=== PATIENT | female | born 1980 | race American Indian/Alaskan Native ===

== ENCOUNTER 2017-01-15 17:15 | Emergency (ER) | payer OTHER ==
[2017-01-15 17:28] VITALS: BP 129/79
[2017-01-15 18:14] LABS: CHLORIDE,CL 106 mmol/L (101-111); SODIUM,NA 140 mmol/L (135-145)
--- NOTE | 2017-01-15 18:15 | EDM.PDOC ---
ED HISTORY OF PRESENT ILLNESS - General Chief Complaint: Respiratory Problem Stated Complaint: COUGH Time Seen by Provider: 01/15/17 17:42 Source of Information: Reports: Patient History Limitations: Reports: No limitations - History of Present Illness INITIAL COMMENTS - FREE TEXT/NARRATIVE: This 36 yo female patient reports to the ED with increased shortness of breath over the past week. The patient reports she attempted to get into the [facility], but there were no walk-in appointments available. The patient reports she has been having troubles getting air into her lungs and feels like there is a "feather" in the back of her throat. Symptom Onset Date: 01/08/17 Timing/Duration: Reports: Constant, Getting worse Severity: moderate Location, General: Reports: chest Quality: Reports: Dull, Pressure Improves with: Reports: None Worsens with: Reports: None Context, General: Reports: Other Associated Symptoms (General): Reports: cough, shortness of breath - Related Data Allergies/ADRs: Allergies Allergy/AdvReac Type Severity Reaction Status Date / Time No Known Allergies Allergy Verified 01/15/17 18:27 Home Meds: Home Meds Atenolol 50 mg PO BID 01/01/14 [History] Losartan [Cozaar] 50 mg PO DAILY 01/01/14 [History] Past Medical History HEENT History: Reports: Impaired vision Cardiovascular History: Reports: Hypertension - Infectious Disease History Infectious Disease History: Reports: Chicken pox - Past Surgical History GI Surgical History: Reports: Appendectomy Female Surgical History: Reports: section Social & Family History - Tobacco Use Smoking Status *Q: Current Some Day Smoker Years of Tobacco use: 10 Packs/Tins Daily: 0.1 Second Hand Smoke Exposure: Yes - Caffeine Use Caffeine Use: Reports: Coffee - Alcohol Use Days Per Week of Alcohol Use: 1 Number of Drinks Per Day: 6 Total Drinks Per Week: 6 - Recreational Drug Use Recreational Drug Use: No - Living Situation & Occupation Living situation: Reports: with significant other Occupation: employed ED ROS GENERAL - Review of Systems Review Of Systems: ROS reveals no pertinent complaints other than HPI. ED EXAM, GENERAL - Physical Exam Exam: See Below Exam Limited By: No limitations General Appearance: alert, WD/WN, moderate distress, obese Eye Exam: bilateral eye: EOMI, normal inspection, PERRL Ears: normal external exam, normal canal, hearing grossly normal, normal TMs Nose: normal inspection, normal mucosa, no blood Throat/Mouth: Normal inspection, Normal lips, Normal teeth, Normal gums, Normal oropharynx, Normal voice, No airway compromise Head: atraumatic, normocephalic Neck: normal inspection, supple, non-tender, full range of motion Respiratory/Chest: no respiratory distress, chest non-tender, decreased breath sounds Cardiovascular: normal peripheral pulses, regular rate, rhythm, no edema, no gallop, no JVD, no murmur, no rub GI/Abdominal: normal bowel sounds, soft, non tender, no organomegaly, no distention, no abnormal bruit, no mass (Female) Exam: Deferred Rectal (Female) Exam: Deferred Extremities: normal inspection, normal range of motion, non-tender, normal capillary refill, no pedal edema Neurological: alert, oriented, CN II-XII intact, normal cognition, normal gait, normal reflexes, no motor/sensory deficits Psychiatric: normal affect, normal mood Skin Exam: Warm, Dry, Intact, Normal color, No rash Lymphatic: no adenopathy Course - Vital Signs Last Recorded V/S: Last Vital Signs Temp 36.6 C 01/15/17 17:27 Pulse 84 01/15/17 17:27 Resp 16 01/15/17 17:27 BP 129/79 01/15/17 17:27 Pulse Ox 100 01/15/17 17:27 - Orders/Labs/Meds Orders: Active Orders 24 hr Category Date Time Status RT Aerosol Therapy [RC] ASDIRECTED Care 01/15/17 18:31 Ordered CULTURE STREP A CONFIRMATION [] Stat Lab 01/15/17 17:46 Results STREP SCRN A RAPID W CULT CONF [] Stat Lab 01/15/17 17:46 Results Labs: Laboratory Tests 01/15/17 01/15/17 Range/Units 17:48 17:48 WBC 14.1 H (5.0-10.0) 10^3/uL RBC 4.34 (4.2-5.4) 10^6/uL Hgb 13.1 (12.0-16.0) g/dL Hct 38.7 (37.0-47.0) % MCV 89.2 (80-100) fL MCH 30.2 (27.0-34.0) pg MCHC 33.9 (33.0-35.0) g/dL Plt Count 217 (150-450) 10^3/uL Neut % (Auto) 66.0 (42.2-75.2) % Lymph % (Auto) 23.3 (20.5-50.1) % [place] % (Auto) 7.7 (2-8) % Eos % (Auto) 2.8 (1.0-3.0) % Baso % (Auto) 0.2 (0.0-1.0) % Sodium 140 (135-145) mmol/L Potassium 4.2 (3.6-5.0) mmol/L Chloride 106 (101-111) mmol/L Carbon Dioxide 26.0 (21.0-31.0) mmol/L Anion Gap 12.2 BUN 14 (7-18) mg/dL Creatinine 0.5 L (0.6-1.3) mg/dL Est Cr Clr Drug Dosing 131.74 mL/min Estimated GFR (MDRD) > 60 BUN/Creatinine Ratio 28.00 Glucose 120 H (74-105) mg/dL Calcium 8.9 (8.4-10.2) mg/dl Total Bilirubin 0.5 (0.2-1.0) mg/dL AST 45 H (10-42) IU/L ALT 56 (10-60) IU/L Alkaline Phosphatase 87 (42-121) IU/L Total Protein 7.0 (6.7-8.2) g/dl Albumin 3.7 (3.2-5.5) g/dl Globulin 3.3 Albumin/Globulin Ratio 1.12 Meds: Medications Discontinued Medications Generic Name Dose Route Start Last Admin Trade Name Jayden PRN Reason Stop Dose Admin Albuterol/Ipratropium 3 ml 01/15/17 18:31 01/15/17 18:36 Duoneb 3.0-0.5 Mg/3 Ml NEB 01/15/17 18:32 3 ml ONETIME ONE Administration Methylprednisolone Sodium Succinate 125 mg 01/15/17 18:55 01/15/17 19:01 Solu-Medrol IM 01/15/17 18:56 125 mg ONETIME ONE Administration Departure - Departure Time of Disposition: 19:02 Disposition: Home, Self-Care 01 Condition: poor Clinical Impression: Shortness of breath Instructions: Shortness of Breath, [id number] Forms: ED Department Discharge Care Plan Goals: The patient was advised of the examination, lab and x-ray results during the visit. The patient was given a dose of SoluMedrol and a Duoneb treatment. The patient was discharged with scripts for 1) Albuterol Neb Solution (2.5/3) #1 box to take 1 treatment 4 times per day as needed, 2) Albuterol MDI (90 mcg) 2 puffs every 6 hours as needed, 3) Azithromycin (250 mg) #6 to take 2 by mouth on day 1 and 1 by mouth on days 2-5, and 4) Prednisone (20 mg) #10 to take 2 by mouth daily for 5 days. The patient should follow-up with her primary care facility in the next week for continued evaluation and management. - My Orders Last 24 Hours: My Active Orders 01/15/17 17:46 CULTURE STREP A CONFIRMATION [RM] Stat STREP SCRN A RAPID W CULT CONF [RM] Stat 01/15/17 18:31 RT Aerosol Therapy [RC] ASDIRECTED - Assessment/Plan Last 24 Hours: My Active Orders 01/15/17 17:46 CULTURE STREP A CONFIRMATION [RM] Stat STREP SCRN A RAPID W CULT CONF [RM] Stat 01/15/17 18:31 RT Aerosol Therapy [RC] ASDIRECTED
[2017-01-15] MEDS ORDERED: Albuterol/Ipratropium 3.0-0.5 MG/3 ML Neb Soln NEB ONE (18:31)
[2017-01-15] MEDS ORDERED: methylPREDNISolone Sodium Succinate 125 MG/2 ML SDV IM ONE (18:55)
== END 2017-01-15 19:20 | disposition home or self-care (01) ==
LOC: DL.ED 17:15
DX: R06.02 Shortness of breath (principal); I10 Essential (primary) hypertension; Z90.49 Acquired absence of other specified parts of digestive tract
CPT/HCPCS: 36415; 71020; 80053; 85025; 87081; 87430; 87804; 94640; 96372; 99284; J2930

== ENCOUNTER 2017-01-15 21:33 | Emergency (ER) | payer OTHER ==
[2017-01-15 21:41] VITALS: BP 140/86
[2017-01-15] MEDS ORDERED: Albuterol/Ipratropium 3.0-0.5 MG/3 ML Neb Soln NEB ONE (21:49)
--- NOTE | 2017-01-15 21:54 | EDM.PDOC ---
ED HISTORY OF PRESENT ILLNESS - General Chief Complaint: Respiratory Problem Stated Complaint: CANT BREATH Time Seen by Provider: 01/15/17 21:50 Source of Information: Reports: Patient History Limitations: Reports: No limitations - History of Present Illness INITIAL COMMENTS - FREE TEXT/NARRATIVE: returns with complaint of cough, tried neb at home without relief. No c/o of dyspnea. Patient seen ealrlier for same, given albuterol solumedrol and antibiotic. - Related Data Allergies/ADRs: Allergies Allergy/AdvReac Type Severity Reaction Status Date / Time No Known Allergies Allergy Verified 01/15/17 18:27 Home Meds: Home Meds Atenolol 50 mg PO BID 01/01/14 [History] Losartan [Cozaar] 50 mg PO DAILY 01/01/14 [History] Past Medical History HEENT History: Reports: Impaired vision Cardiovascular History: Reports: Hypertension - Infectious Disease History Infectious Disease History: Reports: Chicken pox - Past Surgical History GI Surgical History: Reports: Appendectomy Female Surgical History: Reports: section Social & Family History - Tobacco Use Smoking Status *Q: Current Some Day Smoker Years of Tobacco use: 10 Packs/Tins Daily: 0.1 Second Hand Smoke Exposure: Yes - Caffeine Use Caffeine Use: Reports: Coffee - Alcohol Use Days Per Week of Alcohol Use: 1 Number of Drinks Per Day: 6 Total Drinks Per Week: 6 - Recreational Drug Use Recreational Drug Use: No - Living Situation & Occupation Living situation: Reports: with significant other Occupation: employed ED ROS GENERAL - Review of Systems Review Of Systems: See Below Constitutional: Reports: no symptoms HEENT: Reports: No symptoms Respiratory: Reports: cough Cardiovascular: Reports: No symptoms GI/Abdominal: Reports: No symptoms : Reports: no symptoms Musculoskeletal: Reports: no symptoms Skin: Reports: no symptoms Neurological: Reports: no symptoms ED EXAM, GENERAL - Physical Exam Exam: See Below Exam Limited By: No limitations General Appearance: alert, mild distress Eye Exam: bilateral eye: EOMI Ears: normal external exam, normal TMs Nose: normal inspection Throat/Mouth: Normal inspection Head: atraumatic, normocephalic Neck: normal inspection Respiratory/Chest: decreased breath sounds (slight bases), other (frequent dry forced cough). No: crackles, rales, rhonchi, wheezing Cardiovascular: normal peripheral pulses, regular rate, rhythm GI/Abdominal: normal bowel sounds Extremities: normal inspection Neurological: alert, oriented Psychiatric: normal affect Skin Exam: Warm, Dry, Intact, Normal color Course - Vital Signs Last Recorded V/S: Last Vital Signs Temp 97 F 01/15/17 21:38 Pulse 75 01/15/17 22:09 Resp 18 01/15/17 21:38 BP 140/86 01/15/17 21:38 Pulse Ox 99 01/15/17 21:38 - Orders/Labs/Meds Orders: Active Orders 24 hr Category Date Time Status RT Aerosol Therapy [RC] ASDIRECTED Care 01/15/17 21:49 Active Labs: Laboratory Tests 01/15/17 Range/Units 22:09 D-Dimer, Quantitative < 100 (0-400) ng/mL Meds: Medications Discontinued Medications Generic Name Dose Route Start Last Admin Trade Name Jayden PRN Reason Stop Dose Admin Albuterol/Ipratropium 3 ml 01/15/17 21:49 01/15/17 21:57 Duoneb 3.0-0.5 Mg/3 Ml NEB 01/15/17 21:50 3 ml ONETIME ONE Administration Guaifenesin/Codeine Phosphate Confirm 01/15/17 22:55 01/15/17 23:06 Robitussin Ac Administered 01/15/17 22:56 Not Given Dose 10 ml .ROUTE .STK-MED ONE - Re-Assessments/Exams Free Text/Narrative Re-Assessment/Exam: 01/16/17 04:09 Duo Neb with slight improvement in cough. Good air exchange, sats 99% Departure - Departure Time of Disposition: 22:46 Disposition: Home, Self-Care 01 Condition: fair Clinical Impression: Cough due to bronchospasm Instructions: Acute Bronchitis, [id number] Forms: ED Department Discharge Additional Instructions: increase fluids- warm liquids robitussin AC 5ml every 4 hours as needed for cough 10ml albuterol nebulizer every 4 hours as needed clinic follow up 2 days antibiotic and prednisone as previously ordered. Tesselon pearles 200mg one every 8 hours as needed for cough #10 - My Orders Last 24 Hours: My Active Orders 01/15/17 21:49 RT Aerosol Therapy [RC] ASDIRECTED - Assessment/Plan Last 24 Hours: My Active Orders 01/15/17 21:49 RT Aerosol Therapy [RC] ASDIRECTED
[2017-01-15] MEDS ORDERED: Codeine/guaiFENesin 100-10 MG/5 ML Syrup 5 ML Cup ONE (22:55)
[2017-01-15] MEDS ORDERED: Codeine/guaiFENesin 100-10 MG/5 ML Syrup 5 ML Cup PO ONE (22:55)
== END 2017-01-15 23:00 | disposition home or self-care (01) ==
LOC: DL.ED 21:33
DX: J98.01 Acute bronchospasm (principal); R06.02 Shortness of breath; I10 Essential (primary) hypertension; Z90.49 Acquired absence of other specified parts of digestive tract; Z79.899 Other long term (current) drug therapy
CPT/HCPCS: 36415; 71020; 80053; 85025; 85379; 87081; 87430; 87804; 94640; 96372; 99283; 99284; A9270; J2930

== ENCOUNTER 2017-01-17 18:49 | Emergency (ER) | payer OTHER ==
[2017-01-17 18:59] VITALS: BP 151/55
[2017-01-17] MEDS ORDERED: Albuterol 0.083% 2.5 MG/3 ML Neb Soln NEB ONE (19:35)
[2017-01-17] MEDS ORDERED: Lidocaine 1% 30 ML SDV ONE (19:35)
--- NOTE | 2017-01-17 20:06 | EDM.PDOC ---
ED HISTORY OF PRESENT ILLNESS - General Chief Complaint: Respiratory Problem Stated Complaint: COUGH Time Seen by Provider: 01/17/17 19:15 Source of Information: Reports: Patient History Limitations: Reports: No limitations - History of Present Illness INITIAL COMMENTS - FREE TEXT/NARRATIVE: C/O continued dry cough. No improvement since prior ER visits. Has been using nebulizer, last at 230 this afternoon, tesselon, and prednsione. Denies other symptoms. On discussion with patient, prior symptoms with Lisnopril. Sx stopped when on Cozaar. Has been on med approximately 4 years now. - Related Data Allergies/ADRs: Allergies Allergy/AdvReac Type Severity Reaction Status Date / Time lisinopril Allergy Cough Verified 01/18/17 04:24 Home Meds: Home Meds Atenolol 50 mg PO BID 01/01/14 [History] Losartan [Cozaar] 50 mg PO DAILY 01/01/14 [History] Past Medical History HEENT History: Reports: Impaired vision Cardiovascular History: Reports: Hypertension - Infectious Disease History Infectious Disease History: Reports: Chicken pox - Past Surgical History GI Surgical History: Reports: Appendectomy Female Surgical History: Reports: section Social & Family History - Family History Family Medical History: Noncontributory - Tobacco Use Smoking Status *Q: Current Some Day Smoker Years of Tobacco use: 10 Packs/Tins Daily: 0.1 Second Hand Smoke Exposure: Yes - Caffeine Use Caffeine Use: Reports: Coffee - Alcohol Use Days Per Week of Alcohol Use: 1 Number of Drinks Per Day: 6 Total Drinks Per Week: 6 - Recreational Drug Use Recreational Drug Use: No - Living Situation & Occupation Living situation: Reports: with significant other Occupation: employed ED ROS GENERAL - Review of Systems Review Of Systems: See Below Constitutional: Reports: no symptoms HEENT: Reports: No symptoms Respiratory: Reports: cough. Denies: shortness of breath, wheezing, pleuritic chest pain Cardiovascular: Reports: No symptoms GI/Abdominal: Reports: No symptoms Musculoskeletal: Reports: no symptoms Skin: Reports: no symptoms Neurological: Reports: no symptoms Psychiatric: Reports: No symptoms ED EXAM, GENERAL - Physical Exam Exam: See Below Exam Limited By: No limitations General Appearance: alert, moderate distress Eye Exam: bilateral eye: EOMI Ears: normal external exam, normal TMs Nose: normal inspection Throat/Mouth: Normal inspection, No airway compromise Head: atraumatic, normocephalic Neck: normal inspection Respiratory/Chest: no respiratory distress, lungs clear, other (frequent dry cough) Cardiovascular: normal peripheral pulses, regular rate, rhythm Back Exam: normal inspection Extremities: normal inspection, normal range of motion Neurological: alert, oriented, CN II-XII intact, normal cognition Psychiatric: normal affect Skin Exam: Warm, Dry, Intact, Normal color, No rash Course - Vital Signs Last Recorded V/S: Last Vital Signs Temp 96.4 F 01/17/17 18:57 Pulse 90 01/17/17 20:22 Resp 20 01/17/17 18:57 BP 151/55 H 01/17/17 18:57 Pulse Ox 98 01/17/17 18:57 - Orders/Labs/Meds Orders: Active Orders 24 hr Category Date Time Status RT Aerosol Therapy [RC] ASDIRECTED Care 01/17/17 19:35 Active Meds: Medications Discontinued Medications Generic Name Dose Route Start Last Admin Trade Name Freq PRN Reason Stop Dose Admin Acetaminophen/Codeine Phosphate Confirm 01/17/17 20:19 01/17/17 20:26 Tylenol With Codeine No.3 300mg/30mg Administered 01/17/17 20:20 Not Given Dose 3 tab .ROUTE .STK-MED ONE Albuterol 2.5 mg 01/17/17 19:35 01/17/17 19:41 Proventil Neb Soln NEB 01/17/17 19:36 2.5 mg ONETIME ONE Administration Lidocaine HCl 1 ml 01/17/17 19:35 01/17/17 19:42 Xylocaine-Mpf 1% .XX 01/17/17 19:36 1 ml ONETIME ONE Administration - Re-Assessments/Exams Free Text/Narrative Re-Assessment/Exam: 01/18/17 04:29 Albuterol Neb with Lidocaine with good response and improvement in cough. good air exchange Discussed with patient potential relation with cough and Cozaar. Has annual scheduled at [facility] for 02/01. Access to BP monitor at work. Stop cozarr and monitor BP. Foolw up sooner than 02/01 if cough not improving and poor control of BP. Patient agrees with plan Departure - Departure Time of Disposition: 20:25 Disposition: Home, Self-Care 01 Condition: fair Clinical Impression: Cough in adult patient Instructions: Cough, Adult, [id number] Referrals: Chintan Burciaga [Primary Care Provider] - Forms: ED Department Discharge Additional Instructions: Stop Losartan Clinic follow up this week check BP twice daily Tylenol #3 one every 6 hours as needed for cough Clinic or Sunday Urgent follow up if any shortness of breath - My Orders Last 24 Hours: My Active Orders 01/17/17 19:35 RT Aerosol Therapy [RC] ASDIRECTED - Assessment/Plan Last 24 Hours: My Active Orders 01/17/17 19:35 RT Aerosol Therapy [RC] ASDIRECTED
[2017-01-17] MEDS ORDERED: Acetaminophen/Codeine 300-30 MG Tab ONE (20:19)
== END 2017-01-17 20:29 | disposition home or self-care (01) ==
LOC: DL.ED 18:49
DX: R05 Cough (principal); I10 Essential (primary) hypertension; F17.210 Nicotine dependence, cigarettes, uncomplicated; Z90.49 Acquired absence of other specified parts of digestive tract; Z79.899 Other long term (current) drug therapy
CPT/HCPCS: 94640; 99283; J7620

== ENCOUNTER 2017-02-11 16:40 | Emergency (ER) | payer OTHER ==
[2017-02-11 16:54] VITALS: BP 145/91
--- NOTE | 2017-02-11 17:35 | EDM.PDOC ---
ED HPI Trauma - General Chief Complaint: Lower Extremity Injury/Pain Stated Complaint: FOOT INFECTIOn Time Seen by Provider: 02/11/17 17:32 Source: Reports: Patient History Limitations: Reports: No limitations - History of Present Illness INITIAL COMMENTS - FREE TEXT/NARRATIVE: pt states that she has been wearing boots that have been rubbing and now has pain and ulceration to toes on the right foot. denies pain elsewhere. Symptom Onset Date: 02/09/17 Occurred Where: home Severity: moderate Pain/Injury Location: Reports: lower extremity, right Associated Symptoms: Reports: no other symptoms Allergies/ADRs: Allergies lisinopril Allergy (Verified 01/18/17 04:24) Cough Home Medications: Ambulatory Orders Atenolol 50 mg PO BID 01/01/14 [Confirmed 02/11/17] Losartan [Cozaar] 50 mg PO DAILY 01/01/14 [Confirmed 02/11/17] Past Medical History HEENT History: Reports: Impaired vision Cardiovascular History: Reports: Hypertension Respiratory History: Reports: Asthma - Infectious Disease History Infectious Disease History: Reports: Chicken pox - Past Surgical History GI Surgical History: Reports: Appendectomy Female Surgical History: Reports: section Social & Family History - Family History Family Medical History: Noncontributory - Tobacco Use Smoking Status *Q: Current Every Day Smoker Years of Tobacco use: 4 Packs/Tins Daily: 0.2 Second Hand Smoke Exposure: Yes - Caffeine Use Caffeine Use: Reports: Coffee, Energy drinks, Soda - Alcohol Use Days Per Week of Alcohol Use: 1 Number of Drinks Per Day: 6 Total Drinks Per Week: 6 - Recreational Drug Use Recreational Drug Use: No - Living Situation & Occupation Living situation: Reports: with significant other Occupation: employed Review of Systems - Review of Systems Review Of Systems: See Below Skin: Reports: pruritis, wound, lesions Trauma Exam - Physical Exam Exam: See Below Extremities: Reports: tenderness (to right foot) Skin: Reports: Pallor, Other (ulceration and hyperkertonic lesions noted to plantar surface and in between 2nd and 3rd toes. ) Course - Vital Signs Last Recorded V/S: Last Vital Signs Temp 98 F 02/11/17 16:52 Pulse 105 H 02/11/17 16:52 Resp 16 02/11/17 16:52 BP 145/91 H 02/11/17 16:52 Pulse Ox 98 02/11/17 16:52 Departure - Departure Time of Disposition: 17:48 Disposition: Home, Self-Care 01 Condition: good Clinical Impression: Tinea pedis Qualifiers: Laterality: right Qualified Code(s): B35.3 - Tinea pedis Instructions: Athlete's Foot, [id number] Forms: ED Department Discharge Additional Instructions: keep foot clean and dry. Apply the cream to your foot twice a day. Follow up in clinic in 1 week for re-evaluation. If you have foul smelling or discolored drainage, return to the ER.
== END 2017-02-11 18:13 | disposition home or self-care (01) ==
LOC: DL.ED 16:40
DX: B35.3 Tinea pedis (principal); I10 Essential (primary) hypertension; J45.909 Unspecified asthma, uncomplicated; F17.210 Nicotine dependence, cigarettes, uncomplicated; Z90.49 Acquired absence of other specified parts of digestive tract; Z88.8 Allergy status to other drugs, medicaments and biological substances
CPT/HCPCS: 99283

== ENCOUNTER 2017-02-13 17:32 | Emergency (ER) | payer OTHER | END 2017-02-13 17:55 | disposition left against medical advice (07) | LOC: DL.ED 17:32 | DX: Z53.21 Procedure and treatment not carried out due to patient leaving prior to being seen by health care provider (principal) ==

== ENCOUNTER 2017-05-26 14:15 | Emergency (ER) | payer OTHER ==
[2017-05-26 14:28] VITALS: BP 151/81
--- NOTE | 2017-05-26 16:01 | EDM.PDOC ---
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 Patient believes she is heaving a miscarriage. Onset of vaginal spotting last night. Today had heavy bleeding without close for several hours, but less now. She also had dull cramping and low back pain. Quality: Reports: Ache Severity: Moderate Improves with: Reports: None Worsens with: Reports: None Associated Symptoms: Reports: No Other Symptoms Abdomen Pain Score (Numeric/FACES): 3 - Related Data Allergies Allergy/AdvReac Type Severity Reaction Status Date / Time lisinopril Allergy Cough Verified 05/26/17 14:28 Home Meds: Home Meds Atenolol 50 mg PO BID 01/01/14 [History] Albuterol Sulfate [Proventil Hfa] 2 puff INH BID PRN 02/13/17 [History] Hydrochlorothiazide 25 mg PO DAILY 02/13/17 [History] Past Medical History HEENT History: Reports: Impaired Vision Cardiovascular History: Reports: Hypertension Respiratory History: Reports: Asthma Genitourinary History: Reports: Other (See Below) Other Genitourinary History: had renal failure during , resolved now 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5 Psychiatric History: Reports: Anxiety Endocrine/Metabolic History: Reports: Obesity/BMI 30+ - Infectious Disease History Infectious Disease History: Reports: Chicken Pox - Past Surgical History Female Surgical History: Reports: Section (x1.) Social & Family History - Family History Family Medical History: Noncontributory - Tobacco Use Smoking Status *Q: Current Some Day Smoker Years of Tobacco use: 4 Packs/Tins Daily: 0.2 Second Hand Smoke Exposure: Yes - Caffeine Use Caffeine Use: Reports: Coffee, Energy Drinks, Soda - Alcohol Use Days Per Week of Alcohol Use: 1 Number of Drinks Per Day: 6 Total Drinks Per Week: 6 - Recreational Drug Use Recreational Drug Use: No - Living Situation & Occupation Living situation: Reports: with Significant Other Occupation: Employed ED ROS GENERAL - Review of Systems Review Of Systems: ROS reveals no pertinent complaints other than HPI. ED EXAM - Physical Exam Exam: See Below Exam Limited By: No Limitations General Appearance: Alert, WD/WN, No Apparent Distress, Obese Head: Atraumatic, Normocephalic Neck: Normal Inspection, Supple, Non-Tender, Full Range of Motion Respiratory/Chest: No Respiratory Distress, Lungs Clear, Normal Breath Sounds, No Accessory Muscle Use, Chest Non-Tender Cardiovascular: Normal Peripheral Pulses, Regular Rate, Rhythm, No Edema, No Gallop, No JVD, No Murmur, No Rub GI/Abdominal: Other (mild suprapubic tenderness, otherwise normal.) Rectal Exam: Deferred Back Exam: Normal Inspection, Full Range of Motion, NT Extremities: Normal Inspection, Normal Range of Motion, Non-Tender, Normal Capillary Refill, No Pedal Edema Neurological: Alert, Oriented, CN II-XII Intact, Normal Cognition, Normal Gait, Normal Reflexes, No Motor/Sensory Deficits Psychiatric: Normal Affect, Normal Mood Skin Exam: Warm, Dry, Intact, Normal Color, No Rash Course - Vital Signs Last Recorded V/S: Last Vital Signs Temp 36.6 C 05/26/17 14:23 Pulse 78 05/26/17 14:23 Resp 16 05/26/17 14:23 BP 151/81 H 05/26/17 14:23 Pulse Ox 98 05/26/17 14:23 - Orders/Labs/Meds Orders: Active Orders 24 hr Category Date Time Status OB Ltd 1 or More Fetus [US] Urgent Exams 05/26/17 15:03 Taken OB Transvaginal [US] Urgent Exams 05/26/17 15:03 Taken Labs: Laboratory Tests 05/26/17 05/26/17 05/26/17 Range/Units 14:35 14:35 14:45 WBC 11.1 H (5.0-10.0) 10^3/uL RBC 4.70 (4.2-5.4) 10^6/uL Hgb 14.0 (12.0-16.0) g/dL Hct 42.0 (37.0-47.0) % MCV 89.4 (80-100) fL MCH 29.8 (27.0-34.0) pg MCHC 33.3 (33.0-35.0) g/dL Plt Count 241 (150-450) 10^3/uL Neut % (Auto) 64.2 (42.2-75.2) % Lymph % (Auto) 27.0 (20.5-50.1) % [place] % (Auto) 7.1 (2-8) % Eos % (Auto) 1.4 (1.0-3.0) % Baso % (Auto) 0.3 (0.0-1.0) % HCG, Quant (0-25) mIU/ml Beta HCG, Quant mIU/ml Urine Color Dark yellow (YELLOW) Urine Appearance Cloudy (CLEAR) Urine pH 7.0 (5.0-9.0) Ur Specific [place] 1.020 (1.005-1.030) Urine Protein Trace H (NEGATIVE) Urine Glucose (UA) Negative (NEGATIVE) Urine Ketones Negative (NEGATIVE) Urine Occult Blood Moderate H (NEGATIVE) Urine Nitrite Negative (NEGATIVE) Urine Bilirubin Negative (NEGATIVE) Urine Urobilinogen 0.2 (0.2-1.0) mg/dL Ur Leukocyte Esterase Negative (NEGATIVE) Urine RBC >100 H /HPF Urine WBC 0-5 (0-5/HPF) /HPF Ur Epithelial Cells Few /HPF Urine Bacteria Rare (0-FEW/HPF) /HPF Urine Mucus Rare /LPF Urine Opiates Screen Negative (NEGATIVE) Ur Oxycodone Screen Negative (NEGATIVE) Urine Methadone Screen Negative (NEGATIVE) Ur Barbiturates Screen Negative (NEGATIVE) U Tricyclic Antidepress Negative (NEGATIVE) Ur Phencyclidine Scrn Negative (NEGATIVE) Ur Amphetamine Screen Negative (NEGATIVE) U Methamphetamines Scrn Negative (NEGATIVE) Urine MDMA Screen Negative (NEGATIVE) U Benzodiazepines Scrn Negative (NEGATIVE) Urine Cocaine Screen Negative (NEGATIVE) U Marijuana (THC) Screen Negative (NEGATIVE) Ethyl Alcohol mg/dL 05/26/17 05/26/17 Range/Units 14:45 14:45 WBC (5.0-10.0) 10^3/uL RBC (4.2-5.4) 10^6/uL Hgb (12.0-16.0) g/dL Hct (37.0-47.0) % MCV (80-100) fL MCH (27.0-34.0) pg MCHC (33.0-35.0) g/dL Plt Count (150-450) 10^3/uL Neut % (Auto) (42.2-75.2) % Lymph % (Auto) (20.5-50.1) % [place] % (Auto) (2-8) % Eos % (Auto) (1.0-3.0) % Baso % (Auto) (0.0-1.0) % HCG, Quant 0 (0-25) mIU/ml Beta HCG, Quant < 1050 mIU/ml Urine Color (YELLOW) Urine Appearance (CLEAR) Urine pH (5.0-9.0) Ur Specific [place] (1.005-1.030) Urine Protein (NEGATIVE) Urine Glucose (UA) (NEGATIVE) Urine Ketones (NEGATIVE) Urine Occult Blood (NEGATIVE) Urine Nitrite (NEGATIVE) Urine Bilirubin (NEGATIVE) Urine Urobilinogen (0.2-1.0) mg/dL Ur Leukocyte Esterase (NEGATIVE) Urine RBC /HPF Urine WBC (0-5/HPF) /HPF Ur Epithelial Cells /HPF Urine Bacteria (0-FEW/HPF) /HPF Urine Mucus /LPF Urine Opiates Screen (NEGATIVE) Ur Oxycodone Screen (NEGATIVE) Urine Methadone Screen (NEGATIVE) Ur Barbiturates Screen (NEGATIVE) U Tricyclic Antidepress (NEGATIVE) Ur Phencyclidine Scrn (NEGATIVE) Ur Amphetamine Screen (NEGATIVE) U Methamphetamines Scrn (NEGATIVE) Urine MDMA Screen (NEGATIVE) U Benzodiazepines Scrn (NEGATIVE) Urine Cocaine Screen (NEGATIVE) U Marijuana (THC) Screen (NEGATIVE) Ethyl Alcohol < 5 mg/dL - Radiology Interpretation Free Text/Narrative:: 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 No acute findings. See rad report. Departure - Departure Time of Disposition: 15:48 Disposition: Home, Self-Care 01 Condition: Good Clinical Impression: Miscarriage, Complete - Discharge Information Instructions: Miscarriage, Doob-up-Yenp Forms: ED Department Discharge Additional Instructions: Rest and drink plenty of water. Use [id number] Ibuprofen as needed for pain and cramping. Follow instructions on pack label for dosing precautions. Follow up in clinic this week for recheck. Return to ER if you develop heavy bleeding (soaking 1 large pad per hour for 2 or more hours), develop fever, or severe pain. - My Orders Last 24 Hours: My Active Orders 05/26/17 15:03 OB Ltd 1 or More Fetus [US] Urgent OB Transvaginal [US] Urgent - Assessment/Plan Last 24 Hours: My Active Orders 05/26/17 15:03 OB Ltd 1 or More Fetus [US] Urgent OB Transvaginal [US] Urgent I have read and agree with the documentation that has been completed regarding this visit. By signing this record, I attest that the documentation was completed in my physical presence and is an accurate record of the encounter.
== END 2017-05-26 16:18 | disposition home or self-care (01) ==
LOC: DL.ED 14:15
DX: O03.9 Complete or unspecified spontaneous abortion without complication (principal); H54.7 Unspecified visual loss; I10 Essential (primary) hypertension; J45.909 Unspecified asthma, uncomplicated; E66.9 Obesity, unspecified; F17.210 Nicotine dependence, cigarettes, uncomplicated; Z79.899 Other long term (current) drug therapy
CPT/HCPCS: 36415; 76815; 76817; 80305; 81001; 84702; 85025; 99284; G0480

== ENCOUNTER 2017-08-17 21:23 | Emergency (ER) | payer OTHER ==
[2017-08-17] MEDS ORDERED: Albuterol/Ipratropium 3.0-0.5 MG/3 ML Neb Soln NEB ONE (21:41)
[2017-08-17] MEDS ORDERED: methylPREDNISolone Sodium Succinate 125 MG/2 ML SDV IM ONE (21:41)
[2017-08-17] MEDS ORDERED: Benzonatate 100 MG Cap PO ONE (21:41)
--- NOTE | 2017-08-17 21:47 | EDM.PDOC ---
ED HPI GENERAL MEDICAL PROBLEM - General Chief Complaint: Respiratory Problem Stated Complaint: ASTHMA, CANT BREATH, [id number] Time Seen by Provider: 08/17/17 21:43 Source of Information: Reports: Patient History Limitations: Reports: No Limitations - History of Present Illness INITIAL COMMENTS - FREE TEXT/NARRATIVE: sick since last Sunday been to clinic Sunday & Sunday told viral got nothing sent home, still using nebs but not better feeling worse tonight. - Related Data Allergies Allergy/AdvReac Type Severity Reaction Status Date / Time lisinopril Allergy Cough Verified 08/17/17 21:30 Home Meds: Home Meds Atenolol 50 mg PO BID 01/01/14 [History] Albuterol Sulfate [Proventil Hfa] 2 puff INH BID PRN 02/13/17 [History] Hydrochlorothiazide 50 mg PO DAILY 02/13/17 [History] Mometasone/Formoterol [Dulera 200-5 MCG] 2 puff IH BIDRT 08/17/17 [History] Past Medical History HEENT History: Reports: Impaired Vision Cardiovascular History: Reports: Hypertension Respiratory History: Reports: Asthma Gastrointestinal History: Reports: None Genitourinary History: Reports: Other (See Below) Other Genitourinary History: had renal failure during , resolved now 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: Musculoskeletal History: Reports: None Neurological History: Reports: None Psychiatric History: Reports: Anxiety Endocrine/Metabolic History: Reports: Obesity/BMI 30+ Dermatologic History: Reports: None - Infectious Disease History Infectious Disease History: Reports: Chicken Pox - Past Surgical History GI Surgical History: Reports: Appendectomy Female Surgical History: Reports: Section Social & Family History - Family History Family Medical History: Noncontributory - Tobacco Use Smoking Status *Q: Current Every Day Smoker Years of Tobacco use: 5 Packs/Tins Daily: 0.2 Second Hand Smoke Exposure: Yes - Caffeine Use Caffeine Use: Reports: Coffee, Energy Drinks, Soda - Alcohol Use Days Per Week of Alcohol Use: 1 Number of Drinks Per Day: 6 Total Drinks Per Week: 6 - Recreational Drug Use Recreational Drug Use: No - Living Situation & Occupation Living situation: Reports: with Significant Other Occupation: Employed ED ROS GENERAL - Review of Systems Review Of Systems: ROS reveals no pertinent complaints other than HPI. ED EXAM, GENERAL - Physical Exam Exam: See Below Exam Limited By: No Limitations General Appearance: Alert, WD/WN, Mild Distress, Other (cough spasms) Ears: Hearing Grossly Normal Throat/Mouth: Normal Voice, No Airway Compromise Head: Atraumatic Neck: Non-Tender, Full Range of Motion Respiratory/Chest: No Respiratory Distress, No Accessory Muscle Use, Rhonchi, Wheezing. No: Decreased Breath Sounds, Retractions, Splinting Cardiovascular: Regular Rate, Rhythm GI/Abdominal: Soft, Non-Tender Neurological: Alert, Oriented, Normal Cognition, Normal Gait, No Motor/Sensory Deficits Psychiatric: Tearful Skin Exam: Warm, Dry, Normal Color Lymphatic: No Adenopathy Course - Vital Signs Last Recorded V/S: Last Vital Signs Temp 36.6 C 08/17/17 22:08 Pulse 86 08/17/17 22:08 Resp 16 08/17/17 22:08 BP 148/81 H 08/17/17 22:08 Pulse Ox 95 08/17/17 22:08 - Orders/Labs/Meds Meds: Medications Discontinued Medications Generic Name Dose Route Start Last Admin Trade Name Jayden PRN Reason Stop Dose Admin Albuterol/Ipratropium 3 ml 08/17/17 21:41 08/17/17 21:50 Duoneb 3.0-0.5 Mg/3 Ml NEB 08/17/17 21:42 3 ml ONETIME ONE Administration Benzonatate 100 mg 08/17/17 21:41 08/17/17 21:51 Tessalon Perles PO 08/17/17 21:42 100 mg ONETIME ONE Administration Methylprednisolone Sodium Succinate 125 mg 08/17/17 21:41 08/17/17 21:48 Solu-Medrol IM 08/17/17 21:42 125 mg ONETIME ONE Administration Promethazine HCl/Codeine Confirm 08/17/17 21:53 08/17/17 21:57 Phenergan With Codeine Administered 08/17/17 21:54 Not Given Dose 5 ml .ROUTE .STK-MED ONE Departure - Departure Time of Disposition: 22:10 Disposition: Home, Self-Care 01 Condition: Good Clinical Impression: Bronchospasm with bronchitis, acute - Discharge Information Instructions: Acute Bronchitis, [id number] Referrals: Chintan Burciaga [Primary Care Provider] - Forms: ED Department Discharge Additional Instructions: 1) rest and sleep as much as possible 2) drink lots of liquids 3) don't sleep flat at night 4) follow up at clinic or recheck as needed rx given; medrol dospak phenrgan codeine syrup qid prn 4 oz albuterol 2.5mg solution tid prn
[2017-08-17] MEDS ORDERED: Codeine/Promethazine 10-6.25 MG/5 ML Syrup 5 ML UD Cup ONE (21:53)
[2017-08-17 22:09] VITALS: BP 148/81
== END 2017-08-17 22:10 | disposition home or self-care (01) ==
LOC: DL.ED 21:23
DX: J20.9 Acute bronchitis, unspecified (principal); J45.909 Unspecified asthma, uncomplicated; I10 Essential (primary) hypertension; E66.9 Obesity, unspecified; F41.9 Anxiety disorder, unspecified; F17.210 Nicotine dependence, cigarettes, uncomplicated; Z90.49 Acquired absence of other specified parts of digestive tract; Z88.8 Allergy status to other drugs, medicaments and biological substances; Z79.899 Other long term (current) drug therapy
CPT/HCPCS: 94640; 96372; 99284; A9270; J2930

== ENCOUNTER 2018-07-22 07:18 | Emergency (ER) | payer OTHER ==
[2018-07-22] MEDS ORDERED: Mupirocin Oint 22 GM Tube TOP ONE (07:19)
[2018-07-22] MEDS ORDERED: Cephalexin 500 MG Cap PO ONE ×2 (07:19→09:06)
[2018-07-22 07:50] VITALS: BP 143/88
--- NOTE | 2018-07-22 07:58 | EDM.PDOC ---
ED HPI GENERAL MEDICAL PROBLEM - General Chief Complaint: General Stated Complaint: LUMP ON BACK OF RT EAR Time Seen by Provider: 07/22/18 07:58 Source of Information: Reports: Patient, RN, RN Notes Reviewed History Limitations: Reports: No Limitations - History of Present Illness INITIAL COMMENTS - FREE TEXT/NARRATIVE: Pt presents to ER with c/o gradual onset of a painful swollen "ball" on the scalp just behind the left ear. She reports recurrent "infected hair bumps" on the back of her head, but isn't sure if the two are related. Onset: Gradual, Unknown/Unsure Duration: Constant, Getting Worse Location: Reports: Head Quality: Reports: Ache Severity: Severe Improves with: Reports: None Worsens with: Reports: None Associated Symptoms: Reports: No Other Symptoms Left Face Pain Score (Numeric/FACES): 5 - Related Data Allergies Allergy/AdvReac Type Severity Reaction Status Date / Time lisinopril Allergy Cough Verified 07/22/18 07:46 Home Meds: Home Meds Atenolol 50 mg PO BID 01/01/14 [History] Albuterol Sulfate [Proventil Hfa] 2 puff INH BID PRN 02/13/17 [History] hydroCHLOROthiazide [Hydrochlorothiazide] 50 mg PO DAILY 02/13/17 [History] Mometasone/Formoterol [Dulera 200-5 MCG] 2 puff IH BIDRT 08/17/17 [History] Past Medical History HEENT History: Reports: Impaired Vision Cardiovascular History: Reports: Hypertension Respiratory History: Reports: Asthma Gastrointestinal History: Reports: None Genitourinary History: Reports: Other (See Below) Other Genitourinary History: had renal failure during , resolved now 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: Musculoskeletal History: Reports: None Neurological History: Reports: None Psychiatric History: Reports: Anxiety Endocrine/Metabolic History: Reports: Obesity/BMI 30+ Hematologic History: Reports: None Immunologic History: Reports: None Oncologic (Cancer) History: Reports: None Dermatologic History: Reports: None - Infectious Disease History Infectious Disease History: Reports: Chicken Pox - Past Surgical History Head Surgeries/Procedures: Reports: None GI Surgical History: Reports: Appendectomy Female Surgical History: Reports: Section Social & Family History - Family History Family Medical History: Noncontributory - Tobacco Use Smoking Status *Q: Current Every Day Smoker Years of Tobacco use: 10 Packs/Tins Daily: 0.5 Second Hand Smoke Exposure: No - Caffeine Use Caffeine Use: Reports: Coffee - Recreational Drug Use Recreational Drug Use: No - Living Situation & Occupation Living situation: Reports: with Significant Other Occupation: Employed ED ROS GENERAL - Review of Systems Review Of Systems: ROS reveals no pertinent complaints other than HPI. ED EXAM, GENERAL - Physical Exam Exam: See Below Exam Limited By: No Limitations General Appearance: Alert, WD/WN, No Apparent Distress, Obese Eye Exam: Bilateral Eye: Normal Inspection Ears: Normal External Exam, Normal Canal, Hearing Grossly Normal, Normal TMs Nose: Normal Inspection, Normal Mucosa, No Blood Throat/Mouth: Normal Inspection, Normal Oropharynx, Normal Voice, No Airway Compromise Head: Atraumatic, Other (tender enlarged lymph node at left postauricular scalp , occipital folliculitis with pustular heads) Neck: Normal Inspection, Supple, Non-Tender, Full Range of Motion. No: Lymphadenopathy (L), Lymphadenopathy (R) Respiratory/Chest: No Respiratory Distress Neurological: Alert, Oriented, No Motor/Sensory Deficits Psychiatric: Normal Mood Course - Vital Signs Last Recorded V/S: Last Vital Signs Temp 35.9 C 07/22/18 07:36 Pulse 66 07/22/18 07:49 Resp 16 07/22/18 07:49 BP 143/88 H 07/22/18 07:49 Pulse Ox 98 07/22/18 07:49 - Orders/Labs/Meds Meds: Medications Discontinued Medications Generic Name Dose Route Start Last Admin Trade Name Jayden PRN Reason Stop Dose Admin Cephalexin 500 mg 07/22/18 09:06 07/22/18 09:15 Keflex PO 07/22/18 09:07 500 mg ONETIME ONE Administration Cephalexin Confirm 07/22/18 09:13 Keflex Administered 07/22/18 09:14 Dose 2,000 mg .ROUTE .STK-MED ONE Ibuprofen 800 mg 07/22/18 09:07 07/22/18 09:15 Motrin PO 07/22/18 09:08 800 mg ONETIME ONE Administration Mupirocin Confirm 07/22/18 09:13 Bactroban Oint Administered 07/22/18 09:14 Dose 22 gm .ROUTE .STK-MED ONE Departure - Departure Time of Disposition: 09:11 Disposition: Home, Self-Care 01 Condition: Good Clinical Impression: Furuncle of head [any part, except face], Postauricular adenopathy - Discharge Information Instructions: Lymphadenopathy, Folliculitis Forms: ED Department Discharge Additional Instructions: Rx: Cephalexin 500mg Rx: Bactroban Ointment 2% Use over the counter Ibuprofen (Motrin/Advil) 200mg: Take 3 tablets by mouth every six hours as needed for pain/inflammation. Take with food. Do not exceed 2400mg (12 tablets) in 24 hours. Follow up in clinic in 7 to 10 days for recheck.
[2018-07-22] MEDS ORDERED: Ibuprofen 800 MG Tab PO ONE (09:07)
[2018-07-22] MEDS ORDERED: Mupirocin Oint 22 GM Tube ONE (09:13)
[2018-07-22] MEDS ORDERED: Cephalexin 500 MG Cap ONE (09:13)
== END 2018-07-22 09:20 | disposition home or self-care (01) ==
LOC: DL.ED 07:18
DX: L02.821 Furuncle of head [any part, except face] (principal); R59.0 Localized enlarged lymph nodes; I10 Essential (primary) hypertension; E66.9 Obesity, unspecified; F17.210 Nicotine dependence, cigarettes, uncomplicated; Z88.8 Allergy status to other drugs, medicaments and biological substances
CPT/HCPCS: 99282; A9270

== ENCOUNTER 2019-09-19 22:09 | Emergency (ER) | payer OTHER ==
[2019-09-19] MEDS ORDERED: Sodium Chloride 0.9% 10 ML Syringe FLUSH PRN (22:14)
[2019-09-19] MEDS ORDERED: LORazepam 2 MG/ML Syringe IVPUSH ONE (22:22)
[2019-09-19] MEDS ORDERED: Aspirin 81 MG Tab.Chew PO ONE (22:22)
--- NOTE | 2019-09-19 22:34 | EDM.PDOC ---
ED HPI GENERAL MEDICAL PROBLEM - General Chief Complaint: Chest Pain Stated Complaint: POSSIBLE HEART ATTACK Time Seen by Provider: 09/19/19 22:16 Source of Information: Reports: Patient, Family, RN, RN Notes Reviewed History Limitations: Reports: No Limitations - History of Present Illness INITIAL COMMENTS - FREE TEXT/NARRATIVE: patient presents to ER with complaint of midsternal chest pain that radiates to the left side of the chest, into the left shoulder and down the left arm. Complains of left arm feeling numb. Rates chest pain a 7-8/10. Patient admits to nausea. Denies dizziness, SOB, vomiting, diarrhea, recent illness, fever, chills. Patient states she was in a [place] house when the chest pain began. States a certain mask that she really didn't light continued to get in her face time after time. Patient admits to taking blood pressure pills, states she took it today. Denies chance of . Onset: Today, Sudden Mid-Sternal Chest Pain Score (Numeric/FACES): 8 - Related Data Allergies Allergy/AdvReac Type Severity Reaction Status Date / Time lisinopril Allergy Cough Verified 09/19/19 22:38 Home Meds: Home Meds Atenolol 50 mg PO BID 01/01/14 [History] Albuterol Sulfate [Proventil Hfa] 2 puff INH BID PRN 02/13/17 [History] hydroCHLOROthiazide [Hydrochlorothiazide] 50 mg PO DAILY 02/13/17 [History] Mometasone/Formoterol [Dulera 200-5 MCG] 2 puff IH BIDRT 08/17/17 [History] Past Medical History HEENT History: Reports: Impaired Vision Cardiovascular History: Reports: Hypertension Respiratory History: Reports: Asthma Gastrointestinal History: Reports: None Genitourinary History: Reports: Other (See Below) Other Genitourinary History: had renal failure during , resolved now 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: Musculoskeletal History: Reports: None Neurological History: Reports: None Psychiatric History: Reports: Anxiety Endocrine/Metabolic History: Reports: Obesity/BMI 30+ Hematologic History: Reports: None Immunologic History: Reports: None Oncologic (Cancer) History: Reports: None Dermatologic History: Reports: None - Infectious Disease History Infectious Disease History: Reports: Chicken Pox - Past Surgical History Head Surgeries/Procedures: Reports: None GI Surgical History: Reports: Appendectomy Female Surgical History: Reports: Section Social & Family History - Family History Family Medical History: Noncontributory - Caffeine Use Caffeine Use: Reports: Coffee - Living Situation & Occupation Living situation: Reports: with Significant Other Occupation: Employed ED ROS GENERAL - Review of Systems Review Of Systems: ROS reveals no pertinent complaints other than HPI. ED EXAM, GENERAL - Physical Exam Exam: See Below Exam Limited By: No Limitations General Appearance: Alert, WD/WN, Anxious, Moderate Distress Eye Exam: Bilateral Eye: EOMI, Normal Inspection Ears: Normal External Exam, Hearing Grossly Normal Nose: Normal Inspection Throat/Mouth: Normal Inspection, Normal Voice, No Airway Compromise Head: Atraumatic, Normocephalic Neck: Normal Inspection, Supple, Non-Tender, Full Range of Motion Respiratory/Chest: No Respiratory Distress, Lungs Clear, Normal Breath Sounds, No Accessory Muscle Use, Chest Non-Tender Cardiovascular: Normal Peripheral Pulses, Regular Rate, Rhythm, No Edema, No Gallop, No JVD, No Murmur, No Rub Peripheral Pulses: 2+: Radial (L), Radial (R) GI/Abdominal: Normal Bowel Sounds, Soft, Non-Tender (Female) Exam: Deferred Rectal (Female) Exam: Deferred Back Exam: Normal Inspection, Full Range of Motion, NT Extremities: Normal Inspection, Normal Range of Motion, Non-Tender, Normal Capillary Refill, No Pedal Edema Neurological: Alert, Oriented, CN II-XII Intact, Normal Cognition, Normal Gait, Normal Reflexes, No Motor/Sensory Deficits Psychiatric: Anxious, Tearful Skin Exam: Warm, Dry, Intact, Normal Color, No Rash Lymphatic: No Adenopathy Course - Vital Signs Last Recorded V/S: Last Vital Signs Temp 96.5 F 09/19/19 22:16 Pulse 87 09/19/19 22:16 Resp 18 09/19/19 22:16 BP 151/89 H 09/19/19 22:16 Pulse Ox 100 09/19/19 22:16 - Orders/Labs/Meds Orders: Active Orders 24 hr Category Date Time Status EKG Documentation Completion [RC] STAT Care 09/19/19 22:14 Active Peripheral IV Care [RC] . DIRECTED Care 09/19/19 22:15 Active Sodium Chloride 0.9% [Saline Flush] Med 09/19/19 22:14 Active 10 ml FLUSH ASDIRECTED PRN Peripheral IV Insertion Adult [OM.PC] Stat Oth 09/19/19 22:14 Ordered Medication Orders Sodium Chloride (Saline Flush) 10 ml FLUSH ASDIRECTED PRN PRN Reason: Keep Vein Open Last Admin: 09/19/19 22:33 Dose: 10 ml Labs: Laboratory Tests 09/19/19 09/19/19 09/19/19 Range/Units 22:25 22:25 22:25 WBC 14.8 H (5.0-10.0) 10^3/uL RBC 4.78 (4.2-5.4) 10^6/uL Hgb 14.1 (12.0-16.0) g/dL Hct 41.9 (37.0-47.0) % MCV 87.7 (80-100) fL MCH 29.5 (27.0-34.0) pg MCHC 33.7 (33.0-35.0) g/dL Plt Count 246 (150-450) 10^3/uL Neut % (Auto) 65.3 (42.2-75.2) % Lymph % (Auto) 27.3 (20.5-50.1) % Gallia % (Auto) 6.2 (2-8) % Eos % (Auto) 1.1 (1.0-3.0) % Baso % (Auto) 0.1 (0.0-1.0) % PT 9.4 (9.0-12.0) SEC INR 0.9 (0.9-1.2) Sodium 136 (135-145) mmol/L Potassium 3.4 L (3.6-5.0) mmol/L Chloride 101 (101-111) mmol/L Carbon Dioxide 25.0 (21.0-31.0) mmol/L Anion Gap 13.4 BUN 17 (7-18) mg/dL Creatinine 0.7 (0.6-1.3) mg/dL Est Cr Clr Drug Dosing 91.33 mL/min Estimated GFR (MDRD) > 60 BUN/Creatinine Ratio 24.28 Glucose 207 H (74-105) mg/dL Calcium 8.8 (8.4-10.2) mg/dl Total Bilirubin 0.5 (0.2-1.0) mg/dL AST 49 H (10-42) IU/L ALT 73 H (10-60) IU/L Alkaline Phosphatase 118 (42-121) IU/L Troponin I < 0.02 (0.00-0.02) ng/ml Total Protein 7.3 (6.7-8.2) g/dl Albumin 3.6 (3.2-5.5) g/dl Globulin 3.7 Albumin/Globulin Ratio 0.97 Ethyl Alcohol < 5 mg/dL Meds: Medications Generic Name Dose Route Start Last Admin Trade Name Freq PRN Reason Stop Dose Admin Sodium Chloride 10 ml 09/19/19 22:14 09/19/19 22:33 Saline Flush FLUSH 10 ml ASDIRECTED PRN Administration Keep Vein Open Discontinued Medications Generic Name Dose Route Start Last Admin Trade Name Freq PRN Reason Stop Dose Admin Aspirin 324 mg 09/19/19 22:22 09/19/19 22:32 Aspirin PO 09/19/19 22:23 324 mg ONETIME ONE Administration Lorazepam 1 mg 09/19/19 22:22 09/19/19 22:32 Ativan IVPUSH 09/19/19 22:23 1 mg ONETIME ONE Administration - Radiology Interpretation Free Text/Narrative:: Chest xray: FINDINGS: Lungs: Unremarkable. No consolidation. Pleural space: Unremarkable. No evidence of pneumothorax. Heart/Mediastinum: Unremarkable. Heart size within normal limits for technique. Bones/joints: Unremarkable. IMPRESSION: No acute findings. Thank you for allowing us to participate in the care of your patient. Dictated and Authenticated by: Jonathan Pham MD 09/19/2019 11:00 PM Central Time ([place] & [place]) See rad report - Re-Assessments/Exams Free Text/Narrative Re-Assessment/Exam: 09/19/19 23:07 Patient states after ASA and Lorazepam, she is pain free. Departure - Departure Time of Disposition: 23:52 Disposition: Home, Self-Care 01 Condition: Fair Clinical Impression: Anxiety, Atypical chest pain Instructions: Generalized Anxiety Disorder, Adult, Panic Attack, [id number], Chest Wall Pain, [id number], Nonspecific Chest Pain, [id number] Forms: ED Department Discharge Additional Instructions: Return to the ER with any further or worsening problems Follow up with your primary care provider - My Orders Last 24 Hours: My Active Orders 09/19/19 22:14 EKG Documentation Completion [RC] STAT Sodium Chloride 0.9% [Saline Flush] 10 ml FLUSH ASDIRECTED PRN Peripheral IV Insertion Adult [OM.PC] Stat 09/19/19 22:15 Peripheral IV Care [RC] . DIRECTED - Assessment/Plan Last 24 Hours: My Active Orders 09/19/19 22:14 EKG Documentation Completion [RC] STAT Sodium Chloride 0.9% [Saline Flush] 10 ml FLUSH ASDIRECTED PRN Peripheral IV Insertion Adult [OM.PC] Stat 09/19/19 22:15 Peripheral IV Care [RC] . DIRECTED
[2019-09-19 22:52] LABS: ANION GAP 13.4; CHLORIDE,CL 101 mmol/L (101-111); SODIUM,NA 136 mmol/L (135-145)
[2019-09-20 00:12] VITALS: BP 132/65; PULSE 70
== END 2019-09-20 | disposition home or self-care (01) ==
LOC: DL.ED 22:09
DX: R07.89 Other chest pain (principal); F41.9 Anxiety disorder, unspecified; I10 Essential (primary) hypertension; J45.909 Unspecified asthma, uncomplicated; E66.9 Obesity, unspecified; Z68.30 Body mass index [BMI] 30.0-30.9, adult; Z88.8 Allergy status to other drugs, medicaments and biological substances; Z79.899 Other long term (current) drug therapy
CPT/HCPCS: 36415; 71045; 80053; 80320; 84484; 85025; 85610; 93005; 96374; 99285; A9270; J2060; G0480

== ENCOUNTER 2020-05-07 13:23 | Emergency (ER) | payer OTHER ==
--- NOTE | 2020-05-07 13:47 | CT ---
EXAMINATION: Head wo Cont SEX: Female AGE: 39 years CLINICAL HISTORY: 39-year-old female acute onset RIGHT-SIDED WEAKNESS (stroke protocol). Patient reported to have "negative" MRI of the brain, 13 March 2017. Scan technique: Volume acquisition of data emergency unenhanced CT scan of the head and brain obtained with the patient lying supine (positional artifact corrected) on the Siemens multislice scanner [facility]. All data archived in the PACS system for storage, reformatting axial/sagittal/coronal planes and study (bone/brain windows). Interpretation: 1. Uniformly thick bony calvarium. Symmetric clear pneumatization of the paranasal and mastoid sinuses. 2. Generalized mild symmetric cerebral cortical atrophy. Underlying mirror-image normal ventricular system. No hydrocephalus. Physiologic midline pineal and symmetric choroid plexus calcifications. 3. No focal areas of cerebral edema or ischemic infarct. No acute intracranial bleed i.e. no intracerebral/intraventricular/subarachnoid blood. No abnormal extracerebral/intracranial epidural or subdural hematoma. 4. No supratentorial or posterior fossa mass lesion. 5. Cerebellum and brainstem unremarkable. CONCLUSION: Atrophy. Otherwise negative unenhanced CT scan of the head and brain i.e. no ischemic infarct, intracranial mass, hydrocephalus or bleed.
[2020-05-07 14:03] VITALS: PULSE 80
--- NOTE | 2020-05-07 14:05 | EDM.PDOC ---
ED HPI GENERAL MEDICAL PROBLEM - General Stated Complaint: AMBULANCE Time Seen by Provider: 05/07/20 13:50 Source of Information: Reports: Patient History Limitations: Reports: No Limitations - History of Present Illness INITIAL COMMENTS - FREE TEXT/NARRATIVE: This 39 yo female patient was brought to the ED by [facility] due to generalized tingling. EMS reports the patient had slurred speech, right sided arm weakness and right sided facial droop on their evaluation. The patient reports she has noticed that she has been under increased stress over the past couple of weeks. 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 The patient reports her recently graduated son told her earlier this week that it may be time to look for a different job to reduce her stress. Onset: Today Duration: Constant, Improving Location: Reports: Generalized Quality: Reports: Other Severity: Moderate Improves with: Reports: None Worsens with: Reports: None Context: Reports: Other Associated Symptoms: Reports: No Other Symptoms - Related Data Allergies Allergy/AdvReac Type Severity Reaction Status Date / Time lisinopril Allergy Cough Verified 05/07/20 13:50 Home Meds: Home Meds Albuterol Sulfate [Proventil Hfa] 2 puff INH BID PRN 02/13/17 [History] hydroCHLOROthiazide [Hydrochlorothiazide] 25 mg PO DAILY 02/13/17 [History] Losartan [Cozaar] 50 mg PO BEDTIME 05/07/20 [History] Topiramate 50 mg PO DAILY 05/07/20 [History] Past Medical History HEENT History: Reports: Impaired Vision Cardiovascular History: Reports: Hypertension Respiratory History: Reports: Asthma Gastrointestinal History: Reports: None Genitourinary History: Reports: Other (See Below) Other Genitourinary History: had renal failure during , resolved 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: Musculoskeletal History: Reports: None Neurological History: Reports: None Psychiatric History: Reports: Anxiety Endocrine/Metabolic History: Reports: Obesity/BMI 30+ Hematologic History: Reports: None Immunologic History: Reports: None Oncologic (Cancer) History: Reports: None Dermatologic History: Reports: None - Infectious Disease History Infectious Disease History: Reports: Chicken Pox - Past Surgical History Head Surgeries/Procedures: Reports: None GI Surgical History: Reports: Appendectomy Female Surgical History: Reports: Section Social & Family History - Family History Family Medical History: Noncontributory - Caffeine Use Caffeine Use: Reports: Coffee - Living Situation & Occupation Living situation: Reports: with Significant Other Occupation: Employed ED ROS GENERAL - Review of Systems Review Of Systems: Comprehensive ROS is negative, except as noted in HPI. ED EXAM, NEURO - Physical Exam Exam: See Below Exam Limited By: No Limitations General Appearance: Alert, WD/WN, Anxious, Moderate Distress Eye Exam: Bilateral Eye: EOMI, Normal Inspection, PERRL Ears: Normal External Exam, Normal Canal, Hearing Grossly Normal, Normal TMs Nose: Normal Inspection, Normal Mucosa, No Blood Throat/Mouth: Normal Inspection, Normal Lips, Normal Teeth, Normal Gums, Normal Oropharynx, Normal Voice, No Airway Compromise Head Exam: Atraumatic, Normocephalic Neck: Normal Inspection, Supple, Non-Tender, Full Range of Motion Respiratory/Chest: No Respiratory Distress, Lungs Clear, Normal Breath Sounds, No Accessory Muscle Use, Chest Non-Tender Cardiovascular: Normal Peripheral Pulses, Regular Rate, Rhythm, No Edema, No Gallop, No JVD, No Murmur, No Rub GI/Abdominal: Normal Bowel Sounds, Soft, Non-Tender, No Organomegaly, No Distention, No Abnormal Bruit, No Mass (Female) Exam: Deferred Rectal (Female) Exam: Deferred Neurological: Alert, Normal Dorsiflexion, CN II-XII Intact, Normal Plantar Flexion, Normal Reflexes, No Motor/Sensory Deficits, Oriented x 3 Extremities: Normal Inspection, Normal Range of Motion, Non-Tender, No Pedal Edema, Normal Capillary Refill Psychiatric: Anxious Skin Exam: Warm, Dry, Intact, Normal Color, No Rash Course - Vital Signs Last Recorded V/S: Last Vital Signs Temp 36.4 C 05/07/20 13:23 Pulse 80 05/07/20 13:23 Resp 16 05/07/20 13:23 BP 141/99 H 05/07/20 13:23 Pulse Ox 97 05/07/20 13:23 - Orders/Labs/Meds Orders: Active Orders 24 hr Category Date Time Status EKG Documentation Completion [RC] STAT Care 05/07/20 13:27 Active Labs: Laboratory Tests 05/07/20 05/07/20 05/07/20 Range/Units 13:48 13:49 13:49 WBC 13.1 H (5.0-10.0) 10^3/uL RBC 4.80 (4.2-5.4) 10^6/uL Hgb 14.2 (12.0-16.0) g/dL Hct 41.8 (37.0-47.0) % MCV 87.1 (80-100) fL MCH 29.6 (27.0-34.0) pg MCHC 34.0 (33.0-35.0) g/dL Plt Count 245 (150-450) 10^3/uL Neut % (Auto) 65.6 (42.2-75.2) % Lymph % (Auto) 26.5 (20.5-50.1) % Nance % (Auto) 6.9 (2-8) % Eos % (Auto) 0.8 L (1.0-3.0) % Baso % (Auto) 0.2 (0.0-1.0) % Sodium 140 (136-145) mmol/L Potassium 2.9 L (3.5-5.1) mmol/L Chloride 102 (98-107) mmol/L Carbon Dioxide 27 (21-32) mmol/L Anion Gap 13.9 H (7-13) mEq/L BUN 8 (7-18) mg/dL Creatinine 0.85 (0.55-1.02) mg/dL Est Cr Clr Drug Dosing 84.70 mL/min Estimated GFR (MDRD) > 60 BUN/Creatinine Ratio 9.4 (No establ ref range) Glucose 136 H (74-99) mg/dL POC Glucose 138 H (70-105) mg/dl Calcium 8.7 (8.5-10.1) mg/dL Total Bilirubin 0.3 (0.2-1.0) mg/dL AST 26 (15-37) U/L ALT 72 H (14-59) U/L Alkaline Phosphatase 114 (46-116) U/L Troponin I < 0.017 (0.000-0.056) ng/mL Total Protein 6.9 (6.4-8.2) g/dL Albumin 3.3 L (3.4-5.0) g/dL Globulin 3.6 Albumin/Globulin Ratio 0.92 Meds: Medications Discontinued Medications Generic Name Dose Route Start Last Admin Trade Name Jayden PRN Reason Stop Dose Admin Metoclopramide HCl 10 mg 05/07/20 14:45 05/07/20 14:59 Reglan IVPUSH 05/07/20 14:46 10 mg ONETIME ONE Administration Potassium Chloride 20 meq 05/07/20 14:45 05/07/20 15:16 Klor-Con 10 PO 05/07/20 14:46 20 meq ONETIME ONE Administration - Re-Assessments/Exams Free Text/Narrative Re-Assessment/Exam: 05/07/20 14:48 The patient reports she did take a small nap here in the ED and feels a little better. The patient reports some nausea. On order was placed for oral potassium (20 mg) to be given after Reglan . 05/07/20 15:35 The patient reports she is feeling better and ready for discharge Departure - Departure Time of Disposition: 15:35 Disposition: Home, Self-Care 01 Condition: Fair Clinical Impression: Stress at work, Hypokalemia, Anxiety - Discharge Information *PRESCRIPTION DRUG MONITORING PROGRAM REVIEWED*: Not Applicable *COPY OF PRESCRIPTION DRUG MONITORING REPORT IN PATIENT JAMAR: Not Applicable Instructions: Mindfulness-Based Stress Reduction, Potassium Content of Foods Forms: ED Department Discharge Care Plan Goals: The patient was advised of the examination, lab, EKG and CT results during the visit. The patient was encouraged to work on reducing stress in her life. The patient was advised to increase her oral potassium intake. If the patient has any additional symptoms or concerns, the patient should either return to the emergency department or visit her primary care facility. Sepsis Event Note (ED) - Focused Exam Vital Signs: Vital Signs Temp Pulse Resp BP Pulse Ox 05/07/20 13:23 36.4 C 80 16 141/99 H 97 - My Orders Last 24 Hours: My Active Orders 05/07/20 13:27 EKG Documentation Completion [RC] STAT - Assessment/Plan Last 24 Hours: My Active Orders 05/07/20 13:27 EKG Documentation Completion [RC] STAT
[2020-05-07 14:32] LABS: ANION GAP 13.9 mEq/L (7-13); CHLORIDE,CL 102 mmol/L (98-107); SODIUM,NA 140 mmol/L (136-145)
[2020-05-07] MEDS ORDERED: Potassium Chloride 10 MEQ Tab.ER PO ONE (14:45)
[2020-05-07] MEDS ORDERED: Metoclopramide 10 MG/2 ML SDV IVPUSH ONE (14:45)
[2020-05-07 15:51] VITALS: BP 145/86
== END 2020-05-07 15:48 | disposition home or self-care (01) ==
LOC: DL.ED 13:23
DX: E87.6 Hypokalemia (principal); F41.9 Anxiety disorder, unspecified; F43.9 Reaction to severe stress, unspecified; I10 Essential (primary) hypertension; J45.909 Unspecified asthma, uncomplicated; E66.9 Obesity, unspecified; Z68.34 Body mass index [BMI] 34.0-34.9, adult; Z88.8 Allergy status to other drugs, medicaments and biological substances; Z79.899 Other long term (current) drug therapy
CPT/HCPCS: 36415; 70450; 80053; 82962; 84484; 85025; 93005; 96374; 99285; A9270; J2765

== ENCOUNTER 2023-04-15 17:21 | Observation (INO) | payer OTHER ==
[2023-04-15 23:21] VITALS: BP 138/71; PULSE 78
[2023-04-18 11:46] LABS: C.TRACHOMATIS BY TMA Negative (Negative); N.GONORRHOEAE BY TMA Negative (Negative); SOURCE GENITAL
== END 2023-04-15 23:00 | disposition home or self-care (01) ==
LOC: DL.OBCHECK 17:21 → DL.OB 18:51
PROVIDERS: ADMIT Family Medicine; ATTEND Family Medicine
DX: O26.892 Other specified pregnancy related conditions, second trimester (principal); O16.2 Unspecified maternal hypertension, second trimester; O99.342 Other mental disorders complicating pregnancy, second trimester; E11.9 Type 2 diabetes mellitus without complications; F41.9 Anxiety disorder, unspecified; O24.312 Unspecified pre-existing diabetes mellitus in pregnancy, second trimester; O99.213 Obesity complicating pregnancy, third trimester; E66.9 Obesity, unspecified; Z3A.21 21 weeks gestation of pregnancy; Z79.899 Other long term (current) drug therapy; Z90.49 Acquired absence of other specified parts of digestive tract
CPT/HCPCS: 76815; 87210; 87491; 87591; G0378

== ENCOUNTER 2023-04-26 00:22 | Emergency (ER) | payer OTHER ==
[2023-04-26 01:03] LABS: BASOPHILS PERCENT AUTO 0.1 % (0.0-1.0); EOSINOPHILS PERCENT AUTO 0.9 % (1.0-3.0); HEMATOCRIT 33.1 % (37.0-47.0); HEMOGLOBIN 10.9 g/dL (12.0-16.0); MEAN CORPUSCULAR HEMOGLOBIN 28.2 pg (27.0-34.0); MEAN CORPUSCULAR HGB CONC 32.9 g/dL (33.0-35.0); MEAN CORPUSCULAR VOLUME 85.5 fL (80-100); MONOCYTES PERCENT AUTO 6.5 % (2-8); NEUTROPHILS PERCENT AUTO 69.5 % (42.2-75.2); PLATELET COUNT,PLT 252 10^3/uL (150-450); RED BLOOD CELL COUNT 3.87 10^6/uL (4.2-5.4); WHITE BLOOD CELL COUNT,WBC 11.8 10^3/uL (5.0-10.0)
[2023-04-26 01:17] LABS: ALBUMIN 2.7 g/dL (3.4-5.0); ANION GAP 14.9 mEq/L (7-13); BILIRUBIN TOTAL 0.2 mg/dL (0.2-1.0); BUN/CREATININE RATIO 18.2 (No establ ref range); CALCIUM 9.1 mg/dL (8.5-10.1); CREATININE 0.55 mg/dL (0.55-1.02); EST CRCL DRUG DOSING (CG) 112.72 mL/min; POTASSIUM,K 3.9 mmol/L (3.5-5.1); PROTEIN TOTAL,TP 6.4 g/dL (6.4-8.2); URIC ACID 5.3 mg/dL (2.6-6.0)
[2023-04-26 01:22] LABS: A/G RATIO 0.73
[2023-04-26 01:42] LABS: AMPHETAMINES,URINE NEGATIVE (NEGATIVE); BARBITURATES,URINE NEGATIVE (NEGATIVE); BENZODIAZEPINE,URINE NEGATIVE (NEGATIVE); MDMA (ECSTASY), URINE POSITIVE (NEGATIVE); METHADONE,URINE NEGATIVE (NEGATIVE); METHAMPHETAMINES,URINE NEGATIVE (NEGATIVE); OPIATES,URINE NEGATIVE (NEGATIVE); OXYCODONE,URINE NEGATIVE (NEGATIVE); PHENCYCLIDINE,URINE NEGATIVE (NEGATIVE); TCA,URINE NEGATIVE (NEGATIVE)
[2023-04-26 01:48] LABS: CREATININE,URINE RAND 171.93 mg/dL (No establ ref range); PROTEIN CREATININE RATIO,URINE 223.3 mg/g (<150.0); PROTEIN,URINE RANDOM 38.4 mg/dL (0.0-11.9)
[2023-04-26 02:41] LABS: AMPHETAMINES,URINE NEGATIVE (NEGATIVE); BARBITURATES,URINE NEGATIVE (NEGATIVE); BENZODIAZEPINE,URINE NEGATIVE (NEGATIVE); MDMA (ECSTASY), URINE POSITIVE (NEGATIVE); METHADONE,URINE NEGATIVE (NEGATIVE); METHAMPHETAMINES,URINE NEGATIVE (NEGATIVE); OPIATES,URINE NEGATIVE (NEGATIVE); OXYCODONE,URINE NEGATIVE (NEGATIVE); PHENCYCLIDINE,URINE NEGATIVE (NEGATIVE); TCA,URINE NEGATIVE (NEGATIVE)
[2023-04-26 02:53] VITALS: BP 140/73; PULSE 72
== END 2023-04-26 03:24 | disposition home or self-care (01) ==
LOC: DL.ED 00:22
DX: O14.92 Unspecified pre-eclampsia, second trimester (principal); O10.912 Unspecified pre-existing hypertension complicating pregnancy, second trimester; O99.512 Diseases of the respiratory system complicating pregnancy, second trimester; J45.909 Unspecified asthma, uncomplicated; O24.112 Pre-existing type 2 diabetes mellitus, in pregnancy, second trimester; O99.212 Obesity complicating pregnancy, second trimester; Z86.16 Personal history of COVID-19; Z88.8 Allergy status to other drugs, medicaments and biological substances; Z3A.22 22 weeks gestation of pregnancy
CPT/HCPCS: 36415; 80053; 80305-QW; 82570; 83615; 84156; 84550; 85025; 99283; 99284

== ENCOUNTER 2023-12-07 13:06 | Emergency (ER) | payer MEDICAID, OTHER ==
[2023-12-07 13:24] VITALS: BP 140/79; PULSE 72
[2023-12-07] MEDS ORDERED: hydrOXYzine HCl 25 MG Tab PO ONE (13:35)
[2023-12-07 14:21] LABS: BASOPHILS PERCENT AUTO 0.2 % (0.0-1.0); EOSINOPHILS PERCENT AUTO 1.9 % (1.0-3.0); HEMATOCRIT 38.3 % (37.0-47.0); LYMPHOCYTES PERCENT AUTO 28.1 % (20.5-50.1); MEAN CORPUSCULAR HEMOGLOBIN 24.2 pg (27.0-34.0); MEAN CORPUSCULAR HGB CONC 31.3 g/dL (33.0-35.0); MEAN CORPUSCULAR VOLUME 77.4 fL (80-100); MONOCYTES PERCENT AUTO 6.8 % (2-8); PLATELET COUNT,PLT 294 10^3/uL (150-450); RED BLOOD CELL COUNT 4.95 10^6/uL (4.2-5.4); WHITE BLOOD CELL COUNT,WBC 8.8 10^3/uL (5.0-10.0)
[2023-12-07 14:43] LABS: A/G RATIO 0.9; ALBUMIN 3.4 g/dL (3.4-5.0); ANION GAP 14.9 mEq/L (7-13); BILIRUBIN TOTAL 0.2 mg/dL (0.2-1.0); BUN/CREATININE RATIO 17.5 (No establ ref range); CALCIUM 8.5 mg/dL (8.5-10.1); CREATININE 0.63 mg/dL (0.55-1.02); EST CRCL DRUG DOSING (CG) 101.47 mL/min; POTASSIUM,K 3.9 mmol/L (3.5-5.1); PROTEIN TOTAL,TP 7.1 g/dL (6.4-8.2)
== END 2023-12-07 15:48 | disposition home or self-care (01) ==
LOC: DL.ED 13:06
DX: R07.89 Other chest pain (principal); I10 Essential (primary) hypertension; J44.9 Chronic obstructive pulmonary disease, unspecified; E11.9 Type 2 diabetes mellitus without complications; E66.9 Obesity, unspecified; Z86.16 Personal history of COVID-19; Z90.49 Acquired absence of other specified parts of digestive tract; Z87.891 Personal history of nicotine dependence; Z79.82 Long term (current) use of aspirin; Z79.899 Other long term (current) drug therapy; Z79.84 Long term (current) use of oral hypoglycemic drugs; Z88.8 Allergy status to other drugs, medicaments and biological substances; Z68.36 Body mass index [BMI] 36.0-36.9, adult
CPT/HCPCS: 36415; 80053; 84443; 84484; 85025; 93005; 93010; 99284; 99285; A9270-GY

== ENCOUNTER 2024-09-10 20:05 | Emergency (ER) | payer MEDICAID, OTHER ==
[2024-09-10 20:23] VITALS: BP 162/90; PULSE 69
== END 2024-09-10 21:03 | disposition home or self-care (01) ==
LOC: DL.ED 20:05
DX: M62.838 Other muscle spasm (principal); I10 Essential (primary) hypertension; J45.909 Unspecified asthma, uncomplicated; E11.9 Type 2 diabetes mellitus without complications; E66.9 Obesity, unspecified; F17.210 Nicotine dependence, cigarettes, uncomplicated; Z68.38 Body mass index [BMI] 38.0-38.9, adult; Z90.49 Acquired absence of other specified parts of digestive tract; Z86.16 Personal history of COVID-19; Z88.8 Allergy status to other drugs, medicaments and biological substances; Z79.82 Long term (current) use of aspirin; Z79.84 Long term (current) use of oral hypoglycemic drugs; Z79.51 Long term (current) use of inhaled steroids; Z79.899 Other long term (current) drug therapy
CPT/HCPCS: 99283

== ENCOUNTER 2024-10-01 00:59 | Emergency (ER) | payer MEDICAID, OTHER ==
[2024-10-01] MEDS: Sodium Chloride 0.9% 1,000 ML IV ONE (01:28)
[2024-10-01] MEDS: Ondansetron 4 MG/2 ML SDV IVPUSH ONE (01:28)
[2024-10-01 01:32] LABS: BASOPHILS PERCENT AUTO 0.3 % (0.0-1.0); EOSINOPHILS PERCENT AUTO 1.4 % (1.0-3.0); HEMATOCRIT 41.6 % (37.0-47.0); HEMOGLOBIN 13.6 g/dL (12.0-16.0); LYMPHOCYTES PERCENT AUTO 29.5 % (20.5-50.1); MEAN CORPUSCULAR HEMOGLOBIN 27.9 pg (27.0-34.0); MEAN CORPUSCULAR HGB CONC 32.7 g/dL (33.0-35.0); MEAN CORPUSCULAR VOLUME 85.4 fL (80-100); MONOCYTES PERCENT AUTO 6.7 % (2-8); NEUTROPHILS PERCENT AUTO 62.1 % (42.2-75.2); PLATELET COUNT,PLT 321 10^3/uL (150-450); RED BLOOD CELL COUNT 4.87 10^6/uL (4.2-5.4); WHITE BLOOD CELL COUNT,WBC 10.4 10^3/uL (5.0-10.0)
[2024-10-01 01:37] LABS: APPEARANCE,URINE TURBID (CLEAR); BILIRUBIN,URINE LARGE (NEGATIVE); COLOR,URINE RED (YELLOW); GLUCOSE,URINE NEGATIVE (NEGATIVE); KETONES,URINE 15 (NEGATIVE); LEUKOCYTE ESTERASE,URINE LARGE (NEGATIVE); NITRITE,URINE POSITIVE (NEGATIVE); OCCULT BLOOD,URINE LARGE (NEGATIVE); PROTEIN,URINE >=300 (NEGATIVE)
[2024-10-01 01:53] LABS: A/G RATIO 0.9; ALANINE AMINOTRANSFERASE,ALT 20 U/L (14-59); ALBUMIN 3.6 g/dL (3.4-5.0); ALKALINE PHOSPHATASE 121 U/L (46-116); ANION GAP 9.7 mEq/L (7-13); ASPARTATE AMNIOTRANSFERASE,AST 11 U/L (15-37); BILIRUBIN TOTAL 0.2 mg/dL (0.2-1.0); BLOOD UREA NITROGEN,BUN 10 mg/dL (7-18); BUN/CREATININE RATIO 13.3 (No establ ref range); CALCIUM 9.1 mg/dL (8.5-10.1); CARBON DIOXIDE,CO2 30 mmol/L (21-32); CHLORIDE,CL 103 mmol/L (98-107); CREATININE 0.75 mg/dL (0.55-1.02); GLUCOSE RANDOM 177 mg/dL (70-99); LIPASE 47 U/L (16-77); MAGNESIUM 1.7 mg/dL (1.8-2.4); POTASSIUM,K 3.7 mmol/L (3.5-5.1); PROTEIN TOTAL,TP 7.4 g/dL (6.4-8.2); SODIUM,NA 139 mmol/L (136-145)
[2024-10-01 01:55] LABS: ESTIMATED GFR 99 mL/min (>=60)
[2024-10-01 02:05] LABS: EPITHELIAL CELLS,URINE FEW /HPF (NOT SEEN); RBC,URINE PACKED /HPF (0-5)
[2024-10-01 02:06] LABS: BACTERIA,URINE FEW /HPF (0-FEW/HPF); MUCUS,URINE FEW /LPF (NOT SEEN)
[2024-10-01] MEDS ORDERED: Magnesium Oxide 400 MG Tab ONE (02:18)
[2024-10-01] MEDS: cefTRIAXone 1 GM Vial IVPUSH ONE (02:19)
[2024-10-01] MEDS: Magnesium Oxide 400 MG Tab PO SCH (02:19)
[2024-10-01 02:40] VITALS: BP 140/82; PULSE 86
== END 2024-10-01 02:38 | disposition home or self-care (01) ==
LOC: DL.ED 00:59
DX: N92.0 Excessive and frequent menstruation with regular cycle (principal); N39.0 Urinary tract infection, site not specified; I10 Essential (primary) hypertension; J45.909 Unspecified asthma, uncomplicated; E11.9 Type 2 diabetes mellitus without complications; E66.9 Obesity, unspecified; F17.200 Nicotine dependence, unspecified, uncomplicated; Z86.16 Personal history of COVID-19; Z90.49 Acquired absence of other specified parts of digestive tract; Z88.8 Allergy status to other drugs, medicaments and biological substances; Z79.82 Long term (current) use of aspirin; Z79.51 Long term (current) use of inhaled steroids; Z79.84 Long term (current) use of oral hypoglycemic drugs; Z79.899 Other long term (current) drug therapy
CPT/HCPCS: 36415; 80053; 81001; 83690; 83735; 84702; 85025; 86850; 86900; 86901; 87086; 96361; 96374; 96375; 99283; 99284-25; A9270-GY; J0696; J2405; J7030

== ENCOUNTER 2025-03-22 18:03 | Emergency (ER) | payer BC, MEDICAID ==
[2025-03-22 18:26] VITALS: BP 166/85; PULSE 69
[2025-03-22] MEDS: Ondansetron 4 MG Tab.DIS PO ONE (18:45)
[2025-03-22] MEDS: Orphenadrine 60 MG/2 ML Inj IM ONE (18:45)
[2025-03-22] MEDS: Ketorolac 30 MG/ML SDV IM ONE (18:45)
[2025-03-22] MEDS: Take Home: Ondansetron 4 MG Tab.DIS, 5 Tab Pack PO ONE (19:20)
== END 2025-03-22 19:39 | disposition home or self-care (01) ==
LOC: DL.ED 18:03
DX: M26.602 Left temporomandibular joint disorder, unspecified (principal); G89.29 Other chronic pain; I10 Essential (primary) hypertension; E11.9 Type 2 diabetes mellitus without complications; Z86.16 Personal history of COVID-19; Z88.8 Allergy status to other drugs, medicaments and biological substances; Z79.82 Long term (current) use of aspirin; Z79.899 Other long term (current) drug therapy
CPT/HCPCS: 87428; 96372; 99283; 99284; A9270; J1885; J2360; Q0162